=== PATIENT | female | born 1955 | race Caucasian/White ===

== ENCOUNTER 2016-09-14 08:32 | Day surgery (SDC) | payer SELFPAY ==
[~2016-09-14] VITALS: Ht 154.9 cm; Wt 56.8 kg
[~2016-09-14 08:32] MED LIST: LISI10TA3 PO
[2016-09-14 08:57] VITALS: BP 173/94; PULSE 78; RESP 20; TEMP 97.8; O2SAT 100
[2016-09-14] MEDS ORDERED: SODIUM CHLOR 0.9% 1000 ML INJ 1,000 ML IV SCH (10:00)
[2016-09-14 10:01] LABS: AUTOMATED NEUTROPHIL # 4.9 TH/MM3 (1.8-7.7); BASOPHIL % 0.3 % (0.0-2.0); EOSINOPHIL # 0.1 TH/MM3 (0-0.4); HEMATOCRIT 38.1 % (35.0-46.0); HEMO FLAGS DIFF FINAL; MEAN CELL VOLUME 91.8 FL (80.0-100.0); MEAN CORPUSCULAR HEMOGLOBIN 32.1 PG (27.0-34.0); MONO % 5.5 % (0.0-8.0); NEUT % 66.2 % (16.0-70.0); PLATELET COUNT 293 TH/MM3 (150-450); RED BLOOD COUNT 4.15 MIL/MM3 (4.00-5.30); RED CELL DISTRIBUTION WIDTH 12.9 % (11.6-17.2); WHITE BLOOD COUNT 7.4 TH/MM3 (4.0-11.0)
[2016-09-14 10:12] LABS: APTT (PATIENT) 25.2 SEC (24.3-30.1); PROTHROMBIN TIME - PATIENT 10.7 SEC (9.8-11.6)
[2016-09-14 10:25] LABS: BICARBONATE 31.7 MEQ/L (21.0-32.0)
--- NOTE | 2016-09-14 11:01 | PD.RAD ---
Post Procedure Progress Note Pre Procedure Diagnosis: (1) Left foot drop Post Procedure Diagnosis: (1) Left foot drop Procedure Date: Sep 14, 2016 Supervising Radiologist: Everardo James Proceduralist/Assist: Magalie Carrasco, RT(R)(CV), Johanne Jones RT(R)() Anesthesia: Local Plan of Activity Patient to Unit: [facility] Patient Condition: Good Additional Comments: L2-3 puncture. Clear CSF See PACS Report for procedural detail/treatment Everardo James MD Sep 14, 2016 11:00
[2016-09-14 11:05] VITALS: BP 168/92; PULSE 67; RESP 20; TEMP 98.4; O2SAT 99
[2016-09-14 12:10] LABS: VOLUME TUBE # 1 4.2 ML
[2016-09-14 12:11] LABS: CSF LYMPHOCYTES 36 %; CSF MONOCYTES 12 %; CSF NEUTROPHILS 52 %; GROSS BLOOD TUBE #1 1+ (0); GROSS BLOOD TUBE #2 0 (0); GROSS BLOOD TUBE #3 0 (0); GROSS BLOOD TUBE #4 0 (0); SUPERNATE COLOR TUBE #1 CLEAR (CLEAR); SUPERNATE COLOR TUBE #2 CLEAR (CLEAR); SUPERNATE COLOR TUBE #3 CLEAR (CLEAR); SUPERNATE COLOR TUBE #4 CLEAR (CLEAR); VOLUME TUBE # 4 2.6 ML; WBC TUBE #1 5 /MM3 (0-10)
[2016-09-14 12:12] LABS: CSF LYMPHOCYTES 14 %; CSF MONOCYTES 57 %; CSF NEUTROPHILS 29 %; GROSS BLOOD TUBE #4 0 (0); SUPERNATE COLOR TUBE #4 CLEAR (CLEAR); VOLUME TUBE # 4 2.6 ML; WBC TUBE #4 5 /MM3 (0-10)
[2016-09-14 13:15] VITALS: BP 156/79; PULSE 69; RESP 18; O2SAT 99
--- NOTE | 2016-09-14 17:16 | RADRPT ---
EXAM DATE/TIME: 09/14/2016 10:56 [facility] COMPARISON: No previous studies available for comparison. INDICATIONS : Patient presents with left lower extremity weakness in need of lumbar puncture for further evaluation . MEDICAL HISTORY : HTN Hx migraines SURGICAL HISTORY : N/A ENCOUNTER: Initial ACUITY: > 1 year PAIN SCORE: 0/10 LOCATION: N/A LUMBAR PUNCTURE TIME: 10:53 hours FLUORO TIME: 0.10 minutes IMAGE SERIES: 0 ACCESS LEVEL: L2-3 FLUID: 12 cc of clear CSF was collected and sent to the laboratory for analysis. PROCEDURE : 1. Fluoroscopic guided lumbar puncture. The risks, benefits and alternatives to the procedure were explained and verbal and written consent w as obtained. The site was prepped in sterile fashion. Full sterile technique was used, including ca p, mask, sterile gloves and gown and a large sterile sheet. Hand hygiene and 2% chlorhexidine and/or betadine/alcohol prep was utilized per protocol for cutaneous antisepsis. The skin and subcutaneous tissues were infiltrated with local anesthetic solution. With fluoroscopic guidance the lumbar thecal sac was punctured at the level above. The fluid describ ed above was removed without difficulty. The patient tolerated the procedure well and there were no complications. CONCLUSION: Uncomplicated fluoroscopically guided lumbar puncture. Everardo James MD on September 14, 2016 at 17:14 Board Certified Radiologist. This report was verified electronically.
[2016-09-17 11:08] LABS: CSF CRYPTOCOCCUS AG CONF ND (NOT DETECTD)
[2016-09-17 13:54] LABS: B. BURGDORFERI DNA PCR CSF NOT DETECTED (())
[2016-09-18 19:52] LABS: OLIGOCLONAL BANDING CSF NO BANDS (NO BANDS)
== END 2016-09-14 11:05 | disposition home or self-care (01) ==
LOC: HROP 08:32 → HRIP 08:40 → HROP 11:05
PROVIDERS: ATTEND Specialist
DX: M62.81 Muscle weakness (generalized) (principal); M21.372 Foot drop, left foot; I10 Essential (primary) hypertension
CPT/HCPCS: 62270; 77003; 80048; 82040; 82042; 82784; 82945; 83873; 83916; 84157; 85025; 85610; 85730; 86403; 86790; 87015; 87070; 87102; 87116; 87205; 87206; 87801; 89051; J7030